=== PATIENT | male | born 1965 | race Hispanic/Latino ===

== ENCOUNTER 2018-07-27 12:36 | Emergency (ER) | payer OTHER ==
[2018-07-27 13:25] LABS: Hemoglobin 12.6 g/dL (14.0-18.0); Mean Corpuscular HGB CONC 33.9 g/dL (32.0-36.0); Mean Corpuscular Hemoglobin 29.7 pg (27.0-31.0); Mean Corpuscular Volume 87.7 fL (78.0-98.0); Mean Platelet Volume 7.9 fL (7.4-10.4); Platelet Count 215 thou/uL (130-400); Red Blood Cell (RBC) Count 4.24 mill/uL (4.70-6.10); White Blood Cell (WBC) Count 41.5 thou/uL (4.8-10.8)
[2018-07-27 13:37] LABS: Band 13 % (5-11); Burr Cells SLIGHT = 2-5 cells (100X) (0-1/hpf); Dohle Bodies SLIGHT; Lymphocytes 1 % (21-51); MDiff Complete? YES; Monocytes 1 % (0-10); Neutrophil 85 % (42-75); PLT Morphology Comment Appears Adequate; Polychromasia SLIGHT = 2-3 cells (100X) (0-2/hpf); Reflex for Review?? YES; Toxic Granulation SLIGHT; Vacuoles MODERATE
[2018-07-27] MEDS ORDERED: Piperacillin/Tazobactam 3.375 GM VIAL ONE (13:38)
[2018-07-27 13:41] LABS: Troponin I 0.017 ng/mL (< 0.028)
[2018-07-27 13:42] LABS: Lactic Acid 4.2 mmol/L (0.5-2.2)
[2018-07-27 13:43] LABS: ALT (SGPT) 27 U/L (8-55); AST (SGOT) 47 U/L (5-34); Albumin 2.4 g/dL (3.5-5.0); Alkaline Phosphatase 129 U/L (40-150); Anion Gap 18 mmol/L (10-20); BUN (Urea Nitrogen) 67 mg/dL (8.4-25.7); Bilirubin, Total 1.7 mg/dL (0.2-1.2); CK (CPK) 630 U/L (30-200); Calc. Creatinine Clearance 0 mL/min (70-130); Calcium 7.5 mg/dL (7.8-10.44); Carbon Dioxide 17 mmol/L (22-29); Estimated GFR-MDRD 12; Globulin 5.7 g/dL (2.4-3.5); Glucose 255 mg/dL (70-105); Lipase 84 U/L (8-78); Magnesium 1.6 mg/dL (1.6-2.6); Potassium 4.5 mmol/L (3.5-5.1); Protein, Total 8.1 g/dL (6.0-8.3)
[2018-07-27 13:43] LABS: Bilirubin Negative (Negative); Blood, Urine Moderate (Negative); Clarity CLOUDY (Clear); Glucose, Urine (Dipstick) 500 mg/dL (Negative); Leukocyte Large (Negative); Nitrite Positive (Negative); Protein, Urine (Dipstick) Trace mg/dL (Neg-Trace); Specific Gravity, Urine 1.011 (1.002-1.036); Urobilinogen 0.2 mg/dL (0.2-1.0)
--- NOTE | 2018-07-27 13:43 | RAD ---
CHEST ONE VIEW: HISTORY: Fall. FINDINGS: The cardiac silhouette is magnified by projection. The pulmonary vasculature is unremarkable. The m ediastinum is midline. No lobar consolidation or evidence of pneumothorax. IMPRESSION: No active cardiopulmonary abnormalities demonstrated. POS: [facility]
[2018-07-27 13:45] LABS: CKMB 11.5 ng/mL (0-6.6); Chloride 74 mmol/L (98-107); Sodium 104 mmol/L (136-145)
[2018-07-27 13:47] LABS: Bacteria/HPF Rare-Few HPF (None Seen); Hyaline Casts/LPF 0-3 HYALINE CAST LPF (0-3 Hyaline); Pathc Cast-AUWi Flag 0.14 (0-2.49); Squamous Epithelial None Seen HPF (0-3)
--- NOTE | 2018-07-27 13:49 | CT ---
HEAD CT WITHOUT CONTRAST: HISTORY: Level 2 trauma. Unwitnessed fall. Altered mental status. COMPARISON: None. TECHNIQUE: A noncontrast head CT is performed from the skull base to the skull vertex. FINDINGS: Limited evaluation due to motion degradation. No parenchymal hemorrhage. No extraaxial hematoma. N o midline shift. The basilar cisterns are patent. Brain volume is age appropriate. Cortical sue w suzy matter differentiation is preserved. The ventricles and sulci are patent and symmetric. Adequate aeration of the sinuses and mastoid air cells. The calvarium is intact. IMPRESSION: No intracranial posttraumatic sequelae. The results of the study were discussed with Dr. Whalenon 07/27/2018 at 1:14 p.m. CODE CR POS: [facility]
--- NOTE | 2018-07-27 13:49 | CT ---
CT CERVICAL SPINE: Multiple axial tomograms are obtained through the cervical spine with multiplanar reconstruction. INDICATION: Level II trauma. Fall with injury to neck. Cervical vertebrae maintain height and alignment. There are mild degenerative changes present with o steophytes from the anterior cervical vertebrae. Mild loss of disk space at C5-6 and C6-7. No evide nce of cervical spine fracture. IMPRESSION: No evidence of cervical spine fracture. POS: [facility]
--- NOTE | 2018-07-27 13:58 | CT ---
CT OF THE ABDOMEN AND PELVIS WITH IV CONTRAST: INDICATION: Level II trauma, unwitnessed fall, now with altered mental status. FINDINGS: There is respiratory motion artifact involving the lung bases. There is subsegmental atelectasis. There is a gallstone within a contracted gallbladder. There is cirrhotic morphology of the liver. T here are numerous splenic and paraesophageal varicosities. Adrenal glands and pancreas appear within normal limits. There is moderate left and mild right hydronephrosis and hydroureter with perinephri c stranding. There is moderate distention of the bladder. There is a large mixed-density mass at th e level of the prostate extending into the rectum measuring 7.7 x 7.4 cm. The rectum is not well see n at this level. No pathologically enlarged lymph nodes are grossly evident. There are scattered va scular calcifications. No acute osseous abnormality is evident. IMPRESSION: 1. Large heterogeneous mass at the region of the prostate suspicious for prostatic enlargement eithe r from benign prostatic hypertrophy or prostate cancer. This is suspected to be causing significant mass effect on the lower rectum, but without evidence of definite obstruction. Alternatively, this c ould reflect a rectal mass infiltrating into the prostate gland. 2. Moderate distention of the bladder with moderate left and mild right hydronephrosis with perineph jeff stranding. Urology consultation is recommended. 3. Cirrhosis with findings of portal hypertension. 4. Cholelithiasis. 5. Findings called to Dr. Storm at 1:25 p.m. on 07/27/2018. CODE CR POS: [facility]
[2018-07-27] MEDS ORDERED: ISOVUE-370 76%-LOCM 1 ML ONE (14:00)
[2018-07-27 15:04] LABS: Anion Gap 15 mmol/L (10-20); BUN (Urea Nitrogen) 62 mg/dL (8.4-25.7); Calc. Creatinine Clearance 0 mL/min (70-130); Calcium 7.4 mg/dL (7.8-10.44); Carbon Dioxide 18 mmol/L (22-29); Chloride 78 mmol/L (98-107); Estimated GFR-MDRD 14; Glucose 248 mg/dL (70-105); Potassium 4.4 mmol/L (3.5-5.1)
[2018-07-27 15:09] LABS: Sodium 107 mmol/L (136-145)
[2018-07-27] MEDS ORDERED: cefTRIAXone\\ROCEPHIN 2 GM VIAL ONE (15:21)
[2018-07-27] MEDS ORDERED: Sodium Chloride 0.9% 100 ML ONE (15:22)
[2018-07-27] MEDS ORDERED: Adenosine 6 MG/2 ML VIAL ONE (15:54)
[2018-07-27 17:33] LABS: Lactic Acid 2.2 mmol/L (0.5-2.2)
--- NOTE | 2018-07-28 17:21 | EKG ---
Test Reason : Blood Pressure : / mmHG Vent. Rate : 156 BPM Atrial Rate : 131 BPM P-R Int : 000 ms QRS Dur : 088 ms QT Int : 328 ms P-R-T Axes : 000 -52 026 degrees QTc Int : 528 ms Supraventricular tachycardia Left anterior fascicular block Septal infarct , age undetermined Abnormal ECG Confirmed by CAMMIE HENDERSON, JORDIN ([id number]), editor managing newspaper ALEN WHEAT ([id number]) on 07/28/2018 5:20:44 PM Referred By: Confirmed By:JORDIN BONDS MD
--- NOTE | 2018-07-28 17:21 | EKG ---
Test Reason : TACHY Blood Pressure : / mmHG Vent. Rate : 120 BPM Atrial Rate : 120 BPM P-R Int : 174 ms QRS Dur : 082 ms QT Int : 322 ms P-R-T Axes : 072 -48 033 degrees QTc Int : 455 ms Sinus tachycardia Low voltage QRS Left anterior fascicular block Abnormal ECG Confirmed by CAMMIE HENDERSON, JORDIN ([id number]), assistant film editor ALEN WHEAT ([id number]) on 07/28/2018 5:20:45 PM Referred By: Confirmed By:JORDIN BONDS MD
--- NOTE | 2018-07-28 17:21 | EKG ---
Test Reason : SEPSIS Blood Pressure : / mmHG Vent. Rate : 121 BPM Atrial Rate : 113 BPM P-R Int : 176 ms QRS Dur : 080 ms QT Int : 314 ms P-R-T Axes : 054 -54 049 degrees QTc Int : 445 ms Undetermined rhythm Left anterior fascicular block Junctional ST depression, probably normal Abnormal ECG Confirmed by CAMMIE HENDERSON, JORDIN ([id number]), video news editor ALEN WHEAT ([id number]) on 07/28/2018 5:20:43 PM Referred By: CAMMIE Confirmed By:JORDIN BONDS MD
== END 2018-07-27 17:34 | disposition short-term general hospital (02) ==
LOC: ERS 12:36
DX: A41.9 Sepsis, unspecified organism (principal); E87.1 Hypo-osmolality and hyponatremia; N42.89 Other specified disorders of prostate; E11.9 Type 2 diabetes mellitus without complications; I10 Essential (primary) hypertension; Z79.82 Long term (current) use of aspirin; Z79.899 Other long term (current) drug therapy; W18.2XXA Fall in (into) shower or empty bathtub, initial encounter
CPT/HCPCS: 36415; 51702; 70450; 71045; 72125; 74177; 80053; 81003; 81015; 82140; 82553; 83605; 83690; 83735; 84484; 85025; 85060; 87040; 87077; 87149; 87186; 93005; 96365; 96367; 96375; G0390; J0153; J0696; J2543; J3370; J7050